=== PATIENT | male | born 1950 | race Caucasian/White ===

== ENCOUNTER 2020-03-20 11:07 | Inpatient (IN) ==
[2020-03-20] MEDS ORDERED: Furosemide 40 MG/4 ML VIAL IVP ONE (11:26)
[2020-03-20 11:44] LABS: Basophils % 0.2 %; Eosinophils % 0.1 %; Hematocrit 45.3 % (37.5-50.1); Hemoglobin 12.8 g/dL (12.9-16.9); Immature Granulocytes % 0.7 % (0-4); Lymphocytes # 0.5 K/mcL (0.6-4.6); Lymphocytes % 6.4 %; Mean Corpuscular HGB Conc 28.3 g/dL (31.6-35.5); Mean Corpuscular Hemoglobin 26.9 pg (28.0-33.3); Mean Corpuscular Volume 95.2 fL (83.0-100.0); Mean Platelet Volume 10.8 fL (9.4-12.4); Monocytes # 1.1 K/mcL (0.0-1.3); Neutrophils # 6.7 K/mcL (1.6-8.9); Platelet Count 213 K/mcL (140-400); Red Blood Count 4.76 M/mcL (4.19-5.50); Red Cell Distribution Width 14.9 % (11.5-14.5); Segmented Neutrophils % 79.6 %; White Blood Count 8.4 K/mcL (4.3-11.1)
[2020-03-20 11:57] LABS: INR 1.4; Prothrombin Time 15.5 Seconds (9.4-12.1)
[2020-03-20 12:14] LABS: Hypochromasia Present (Not Present); Platelet Estimate Normal (Normal)
[2020-03-20 13:07] LABS: Albumin 3.7 g/dL (3.5-5.7); Albumin/Globulin Ratio 1.2 (1.1-2.2); Bilirubin,Direct 0.2 mg/dL (0.0-0.2); Bilirubin,Indirect 0.5 mg/dL (0.0-1.0); Bilirubin,Total 0.7 mg/dL (0.3-1.0); Calcium 9.1 mg/dL (8.6-10.3); Potassium 5.3 mEq/L (3.5-5.1); Total Protein 6.7 g/dL (6.4-8.9); Troponin I 0.23 ng/mL (< 0.04)
[2020-03-20 13:11] LABS: Adenovirus Not Detected (Not Detect); Bordetella Pertussis Not Detected (Not Detect); Chlamydophila pneumoniae Not Detected (Not Detect); Coronavirus 229E Not Detected (Not Detect); Coronavirus HKU1 Not Detected (Not Detect); Coronavirus NL63 Not Detected (Not Detect); Coronavirus OC43 Not Detected (Not Detect); Human Metapneumovirus Not Detected (Not Detect); Human Rhinovirus/Enterovirus Not Detected (Not Detect); Influenza A Subtype 2009 H1 Not Detected (Not Detect); Influenza B Not Detected (Not Detect); Mycoplasma pneumoniae Not Detected (Not Detect); Parainfluenza Virus 1 Not Detected (Not Detect); Parainfluenza Virus 2 Not Detected (Not Detect); Parainfluenza Virus 3 Not Detected (Not Detect); Parainfluenza Virus 4 Not Detected (Not Detect); Respiratory Syncytial Virus Not Detected (Not Detect); SARS-CoV-2 Not Detected (Not Detect)
[2020-03-20] MEDS ORDERED: *HR* Heparin 5,000 UNIT/ML VIAL IVP ONE (13:18)
[2020-03-20] MEDS ORDERED: Aspirin 325 MG TABLET PO ONE (13:24)
[2020-03-20] MEDS ORDERED: Naloxone 0.4 MG/ML INJ IVP PRN (13:40)
[2020-03-20] MEDS ORDERED: Ondansetron 4 MG/2 ML VIAL IVP PRN (13:40)
[2020-03-20] MEDS ORDERED: Perflutren Lipid Microsphere 1.3 ML in 0.9 % Sodium Chloride 8.7 ML IVP PRN (13:42)
[2020-03-20 13:54] LABS: Hematocrit 43.7 % (37.5-50.1); Hemoglobin 12.7 g/dL (12.9-16.9); Mean Corpuscular HGB Conc 29.1 g/dL (31.6-35.5); Mean Corpuscular Hemoglobin 27.4 pg (28.0-33.3); Mean Corpuscular Volume 94.4 fL (83.0-100.0); Mean Platelet Volume 10.9 fL (9.4-12.4); Platelet Count 208 K/mcL (140-400); Red Blood Count 4.63 M/mcL (4.19-5.50); White Blood Count 8.7 K/mcL (4.3-11.1)
[2020-03-20] MEDS: Heparin 25,000UNIT/250ML 1/2NS 25,000 UNIT/250 ML IV.SOLN IVC SCH (13:54)
[2020-03-20 14:08] LABS: Heparin anti-factor XA UFH < 0.04 IU/mL (0.30-0.70); INR 1.3; Prothrombin Time 14.9 Seconds (9.4-12.1)
[2020-03-20 16:51] LABS: VBG HCO3 39 mEq/L (21-27); VBG PCO2 75 mmHg (41-51); VBG PH 7.33 pH Units (7.32-7.42); VBG PO2 160 mmHg (25-50)
[2020-03-20] MEDS: Furosemide 40 MG/4 ML VIAL IVP SCH (19:42)
[2020-03-20] MEDS: *HR* Heparin 5,000 UNIT/ML VIAL IVP PRN (20:51)
[2020-03-20 21:16] LABS: ABG Base Excess 13 mEq/L (-2 to 3); ABG HCO3 44 mEq/L (21-27); ABG Oxygen Saturation 91 % (95-98); ABG PCO2 93 mmHg (35-45); ABG PH 7.29 pH Units (7.32-7.45); ABG PO2 73 mmHg (85-104); ABG TCO2 47 mEq/L (20-26); Blood Gas Modality ST
[2020-03-20 22:07] LABS: Bacteria,Urine Few per hpf (None-Few); Bilirubin,Urine Negative (Negative); Blood,Urine Large (Negative); Clarity,Urine Turbid (Clear); Color,Urine Light-Orange (Yellow); Glucose,Urine (UA) Normal (Normal); Ketones,Urine Negative (Negative); Leukocyte Esterase,Urine Small (Negative); Mucus,Urine Few per lpf (None-Few); Nitrite,Urine Negative (Negative); PH,Urine 5.5 pH Units (5.0-8.0); Protein,Urine 50 mg/dL (Neg-Trace); RBC,Urine TNTC per hpf (0-3); Specific Gravity,Urine 1.013 (1.010-1.025); Urobilinogen,Urine Normal (Normal); WBC,Urine 15-30 per hpf (0-3)
[2020-03-21 00:39] LABS: ABG Base Excess 15 mEq/L (-2 to 3); ABG HCO3 45 mEq/L (21-27); ABG Oxygen Saturation 96 % (95-98); ABG PCO2 86 mmHg (35-45); ABG PH 7.32 pH Units (7.32-7.45); ABG PO2 93 mmHg (85-104); ABG TCO2 47 mEq/L (20-26); Blood Gas Modality AVAPS; Blood Gas VT 500 cc
[2020-03-21 03:26] LABS: Red Cell Distribution Width 14.9 % (11.5-14.5)
[2020-03-21 03:28] LABS: Basophils % 0.4 %; Eosinophils # 0.1 K/mcL (0.0-0.6); Hematocrit 39.6 % (37.5-50.1); Hemoglobin 11.3 g/dL (12.9-16.9); Immature Granulocytes % 0.7 % (0-4); Lymphocytes # 0.8 K/mcL (0.6-4.6); Lymphocytes % 11.5 %; Mean Corpuscular HGB Conc 28.5 g/dL (31.6-35.5); Mean Corpuscular Hemoglobin 26.8 pg (28.0-33.3); Mean Corpuscular Volume 94.1 fL (83.0-100.0); Mean Platelet Volume 10.9 fL (9.4-12.4); Monocytes # 1.2 K/mcL (0.0-1.3); Platelet Count 154 K/mcL (140-400); Red Blood Count 4.21 M/mcL (4.19-5.50); Segmented Neutrophils % 69.4 %; White Blood Count 7.1 K/mcL (4.3-11.1)
[2020-03-21 03:35] LABS: Neutrophils # 4.9 K/mcL (1.6-8.9)
[2020-03-21 03:50] LABS: Calcium 8.7 mg/dL (8.6-10.3); Magnesium 2.2 mg/dL (1.6-2.6); Potassium 4.4 mEq/L (3.5-5.1)
[2020-03-21 03:51] LABS: Platelet Estimate Normal (Normal)
[2020-03-21 04:28] LABS: ABG Base Excess 17 mEq/L (-2 to 3); ABG HCO3 44 mEq/L (21-27); ABG Oxygen Saturation 98 % (95-98); ABG PCO2 66 mmHg (35-45); ABG PH 7.44 pH Units (7.32-7.45); ABG PO2 115 mmHg (85-104); ABG TCO2 46 mEq/L (20-26); Blood Gas Modality AVAPS; Blood Gas VT 500 cc
[2020-03-21] MEDS: Aspirin 81 MG TAB.CHEW PO SCH (08:56)
[2020-03-21] MEDS: Cyanocobalamin (B-12) 1,000 MCG TABLET PO SCH (08:57)
[2020-03-21] MEDS: Pregabalin 50 MG CAPSULE PO SCH ×2 (08:59→20:40)
[2020-03-21] MEDS ORDERED: Fenofibrate 54 MG TABLET PO SCH (09:00)
[2020-03-21] MEDS: FLUoxetine HCl 10 MG CAPSULE PO SCH (09:00)
[2020-03-21] MEDS: Furosemide 40 MG/4 ML VIAL IVP SCH (09:00)
[2020-03-21] MEDS: Magnesium Oxide 400 MG TABLET PO SCH ×2 (09:00→20:41)
[2020-03-21] MEDS: *HR* Heparin 5,000 UNIT/ML VIAL IVP PRN (11:13)
[2020-03-21] MEDS: *HR* HYDROcodone/Acet 5/325 mg TABLET PO PRN (11:13)
[2020-03-21] MEDS: Heparin 25,000UNIT/250ML 1/2NS 25,000 UNIT/250 ML IV.SOLN IVC SCH (12:07)
[2020-03-21] MEDS: Metoprolol XL (24 HR) Succ 50 MG TAB.ER.24H PO SCH ×2 (14:08→20:41)
[2020-03-22 02:39] LABS: Eosinophils % 0.2 %; Immature Granulocytes % 0.8 % (0-4)
[2020-03-22 02:40] LABS: Basophils % 0.4 %; Hematocrit 45.1 % (37.5-50.1); Hemoglobin 12.6 g/dL (12.9-16.9); Lymphocytes # 0.9 K/mcL (0.6-4.6); Lymphocytes % 8.5 %; Mean Corpuscular HGB Conc 27.9 g/dL (31.6-35.5); Mean Corpuscular Hemoglobin 26.7 pg (28.0-33.3); Mean Corpuscular Volume 95.6 fL (83.0-100.0); Mean Platelet Volume 11.2 fL (9.4-12.4); Monocytes # 1.3 K/mcL (0.0-1.3); Monocytes % 12.9 %; Platelet Count 227 K/mcL (140-400); Red Blood Count 4.72 M/mcL (4.19-5.50); Red Cell Distribution Width 14.8 % (11.5-14.5); Segmented Neutrophils % 77.2 %; White Blood Count 10.3 K/mcL (4.3-11.1)
[2020-03-22 03:07] LABS: Calcium 9.1 mg/dL (8.6-10.3)
[2020-03-22 03:09] LABS: Macrocytosis Present (Not Present)
[2020-03-22 03:10] LABS: Anisocytosis 1+ (Not Present); Platelet Estimate Normal (Normal)
[2020-03-22] MEDS: Heparin 25,000UNIT/250ML 1/2NS 25,000 UNIT/250 ML IV.SOLN IVC SCH (06:26)
[2020-03-22] MEDS ORDERED: 0.9 % Sodium Chloride 250 ML IVC PRN ×2 (08:57→15:16)
[2020-03-22] MEDS ORDERED: *HR* Heparin 10,000 UNIT/10 ML VIAL IV PRN (08:57)
[2020-03-22] MEDS ORDERED: 0.9 % Sodium Chloride 1,000 ML PRIME SCH (09:00)
[2020-03-22] MEDS: *HR* HYDROcodone/Acet 5/325 mg TABLET PO PRN (09:14)
[2020-03-22] MEDS: Metoprolol XL (24 HR) Succ 50 MG TAB.ER.24H PO SCH ×2 (09:14→21:44)
[2020-03-22] MEDS: Pregabalin 50 MG CAPSULE PO SCH (09:15)
[2020-03-22] MEDS: SODIUM ZIRCONIUM CYCLOSILICATE 5 GM POWD.PACK PO SCH (09:15)
[2020-03-22] MEDS: Aspirin 81 MG TAB.CHEW PO SCH (09:15)
[2020-03-22] MEDS: Magnesium Oxide 400 MG TABLET PO SCH ×2 (09:15→21:44)
[2020-03-22] MEDS: FLUoxetine HCl 10 MG CAPSULE PO SCH (09:15)
[2020-03-22] MEDS: Cyanocobalamin (B-12) 1,000 MCG TABLET PO SCH (09:15)
[2020-03-22] MEDS: Fenofibrate 54 MG TABLET PO SCH (09:16)
[2020-03-22] MEDS ORDERED: Heparin 1,000 UNITS/500 mL 500 ML ONE (10:35)
[2020-03-22] MEDS ORDERED: *HR* Heparin 5,000 UNIT/ML VIAL ONE (10:36)
[2020-03-22 11:05] LABS: Hepatitis B Surface Antibody 19.71 mIU/mL
[2020-03-22 11:16] LABS: Hepatitis B Surface Antigen Nonreactive (Nonreactive)
[2020-03-22 12:09] LABS: Hematocrit 44.5 % (37.5-50.1); Hemoglobin 12.9 g/dL (12.9-16.9)
[2020-03-22 12:14] LABS: ABG Base Excess 9 mEq/L (-2 to 3); ABG HCO3 38 mEq/L (21-27); ABG Oxygen Saturation 99 % (95-98); ABG PCO2 73 mmHg (35-45); ABG PH 7.33 pH Units (7.32-7.45); ABG PO2 145 mmHg (85-104); ABG TCO2 41 mEq/L (20-26); Blood Gas Modality BiLevel
[2020-03-22 15:29] LABS: Calcium 8.7 mg/dL (8.6-10.3); Potassium 4.2 mEq/L (3.5-5.1)
[2020-03-22] MEDS: Pregabalin 75 MG CAPSULE PO SCH (21:43)
[2020-03-23] MEDS ORDERED: *HR* Heparin 10,000 UNIT/10 ML VIAL IV PRN (00:01)
[2020-03-23] MEDS: Heparin 25,000UNIT/250ML 1/2NS 25,000 UNIT/250 ML IV.SOLN IVC SCH ×3 (03:29→21:14)
[2020-03-23 04:06] LABS: Basophils % 0.2 %; Hemoglobin 11.8 g/dL (12.9-16.9)
[2020-03-23 04:08] LABS: Eosinophils % 0.4 %; Hematocrit 41.4 % (37.5-50.1); Immature Granulocytes % 1.1 % (0-4); Lymphocytes # 0.7 K/mcL (0.6-4.6); Mean Corpuscular HGB Conc 28.5 g/dL (31.6-35.5); Mean Corpuscular Hemoglobin 26.9 pg (28.0-33.3); Mean Corpuscular Volume 94.5 fL (83.0-100.0); Mean Platelet Volume 11.1 fL (9.4-12.4); Monocytes % 12.1 %; Neutrophils # 6.3 K/mcL (1.6-8.9); Platelet Count 182 K/mcL (140-400); Red Blood Count 4.38 M/mcL (4.19-5.50); Segmented Neutrophils % 77.2 %; White Blood Count 8.2 K/mcL (4.3-11.1)
[2020-03-23 04:24] LABS: Calcium 8.5 mg/dL (8.6-10.3); Potassium 4.7 mEq/L (3.5-5.1)
[2020-03-23 04:49] LABS: Hypochromasia Present (Not Present); Platelet Estimate Normal (Normal); Polychromasia 1+ (Not Present)
[2020-03-23] MEDS: Pregabalin 75 MG CAPSULE PO SCH ×2 (07:50→20:11)
[2020-03-23] MEDS: Aspirin 81 MG TAB.CHEW PO SCH (07:50)
[2020-03-23] MEDS: Fenofibrate 54 MG TABLET PO SCH (07:50)
[2020-03-23] MEDS: Metoprolol XL (24 HR) Succ 50 MG TAB.ER.24H PO SCH (07:50)
[2020-03-23] MEDS: FLUoxetine HCl 10 MG CAPSULE PO SCH (07:50)
[2020-03-23] MEDS: Cyanocobalamin (B-12) 1,000 MCG TABLET PO SCH (07:51)
[2020-03-23] MEDS: SODIUM ZIRCONIUM CYCLOSILICATE 5 GM POWD.PACK PO SCH (07:51)
[2020-03-23] MEDS: Magnesium Oxide 400 MG TABLET PO SCH ×2 (07:51→20:11)
[2020-03-23] MEDS ORDERED: Perflutren Lipid Microsphere 1.3 ML in 0.9 % Sodium Chloride 8.7 ML IVP PRN (14:34)
[2020-03-23] MEDS: Metoprolol XL (24 HR) Succ 25 MG TAB.ER.24H PO SCH (20:11)
[2020-03-24 01:22] LABS: Immature Granulocytes % 1.7 % (0-4); Mean Corpuscular HGB Conc 28.9 g/dL (31.6-35.5); Nucleated Red Blood Cells 0.2 /100 WBC (0); Red Cell Distribution Width 15.1 % (11.5-14.5)
[2020-03-24 01:23] LABS: Basophils % 0.4 %; Eosinophils # 0.1 K/mcL (0.0-0.6); Eosinophils % 0.8 %; Hematocrit 39.8 % (37.5-50.1); Hemoglobin 11.5 g/dL (12.9-16.9); Lymphocytes % 8.2 %; Mean Corpuscular Hemoglobin 27.1 pg (28.0-33.3); Mean Corpuscular Volume 93.6 fL (83.0-100.0); Mean Platelet Volume 11.2 fL (9.4-12.4); Monocytes # 1.3 K/mcL (0.0-1.3); Monocytes % 14.6 %; Platelet Count 149 K/mcL (140-400); Red Blood Count 4.25 M/mcL (4.19-5.50); Segmented Neutrophils % 74.3 %; White Blood Count 9.1 K/mcL (4.3-11.1)
[2020-03-24 01:27] LABS: Lymphocytes # 0.8 K/mcL (0.6-4.6); Neutrophils # 6.8 K/mcL (1.6-8.9)
[2020-03-24 01:47] LABS: Anisocytosis 1+ (Not Present); Calcium 8.5 mg/dL (8.6-10.3); Hypochromasia Present (Not Present); Platelet Estimate Normal (Normal); Potassium 4.5 mEq/L (3.5-5.1)
[2020-03-24] MEDS: *HR* Heparin 5,000 UNIT/ML VIAL IVP PRN (02:49)
[2020-03-24] MEDS ORDERED: 0.9 % Sodium Chloride 250 ML IVC PRN (08:26)
[2020-03-24] MEDS ORDERED: *HR* Heparin 10,000 UNIT/10 ML VIAL IV PRN ×2 (08:26)
[2020-03-24] MEDS: SODIUM ZIRCONIUM CYCLOSILICATE 5 GM POWD.PACK PO SCH (08:50)
[2020-03-24] MEDS: FLUoxetine HCl 10 MG CAPSULE PO SCH (08:51)
[2020-03-24] MEDS: Magnesium Oxide 400 MG TABLET PO SCH ×2 (08:51→20:28)
[2020-03-24] MEDS: Fenofibrate 54 MG TABLET PO SCH (08:51)
[2020-03-24] MEDS: Metoprolol XL (24 HR) Succ 25 MG TAB.ER.24H PO SCH ×2 (08:54→20:28)
[2020-03-24] MEDS: Cyanocobalamin (B-12) 1,000 MCG TABLET PO SCH (08:54)
[2020-03-24] MEDS: Aspirin 81 MG TAB.CHEW PO SCH (08:55)
[2020-03-24] MEDS: Pregabalin 75 MG CAPSULE PO SCH ×2 (08:56→20:28)
[2020-03-24 09:13] LABS: Magnesium 2.4 mg/dL (1.6-2.6); Phosphorous 4.9 mg/dL (2.7-4.5)
[2020-03-24] MEDS: *HR* HYDROcodone/Acet 5/325 mg TABLET PO PRN (17:26)
[2020-03-25 03:37] LABS: Basophils % 0.4 %; Eosinophils % 0.7 %; Mean Corpuscular HGB Conc 28.8 g/dL (31.6-35.5); Red Cell Distribution Width 15.1 % (11.5-14.5)
[2020-03-25 03:39] LABS: Eosinophils # 0.1 K/mcL (0.0-0.6); Hematocrit 39.9 % (37.5-50.1); Hemoglobin 11.5 g/dL (12.9-16.9); Immature Granulocytes % 2.4 % (0-4); Lymphocytes # 0.9 K/mcL (0.6-4.6); Lymphocytes % 9.1 %; Mean Corpuscular Hemoglobin 26.8 pg (28.0-33.3); Mean Platelet Volume 11.3 fL (9.4-12.4); Monocytes # 1.5 K/mcL (0.0-1.3); Monocytes % 14.6 %; Neutrophils # 7.3 K/mcL (1.6-8.9); Nucleated Red Blood Cells 0.5 /100 WBC (0); Platelet Count 147 K/mcL (140-400); Red Blood Count 4.29 M/mcL (4.19-5.50); Segmented Neutrophils % 72.8 %
[2020-03-25 03:54] LABS: Calcium 8.6 mg/dL (8.6-10.3); Potassium 4.3 mEq/L (3.5-5.1)
[2020-03-25 04:00] LABS: Platelet Estimate Normal (Normal)
[2020-03-25] MEDS: Heparin 25,000UNIT/250ML 1/2NS 25,000 UNIT/250 ML IV.SOLN IVC SCH ×2 (05:33→22:09)
[2020-03-25] MEDS: Pregabalin 75 MG CAPSULE PO SCH ×2 (08:57→20:18)
[2020-03-25] MEDS: Magnesium Oxide 400 MG TABLET PO SCH ×2 (08:57→20:17)
[2020-03-25] MEDS: Metoprolol XL (24 HR) Succ 25 MG TAB.ER.24H PO SCH ×2 (08:57→20:18)
[2020-03-25] MEDS: FLUoxetine HCl 10 MG CAPSULE PO SCH (08:57)
[2020-03-25] MEDS: Fenofibrate 54 MG TABLET PO SCH (08:57)
[2020-03-25] MEDS: Aspirin 81 MG TAB.CHEW PO SCH (08:57)
[2020-03-25] MEDS: SODIUM ZIRCONIUM CYCLOSILICATE 5 GM POWD.PACK PO SCH (09:07)
[2020-03-25] MEDS: Cyanocobalamin (B-12) 1,000 MCG TABLET PO SCH (09:07)
[2020-03-25] MEDS ORDERED: *HR* Metoprolol 5 MG/5 ML VIAL IVP STA (14:51)
[2020-03-25] MEDS ORDERED: Albumin 25% 25gram/100mL 25 GM/100 ML IV.SOLN IVPB ONE (17:07)
[2020-03-26 05:38] LABS: Basophils # 0.1 K/mcL (0.0-0.2); Basophils % 0.4 %; Eosinophils % 0.1 %; Hematocrit 44.4 % (37.5-50.1); Lymphocytes # 0.6 K/mcL (0.6-4.6); Lymphocytes % 4.4 %; Mean Corpuscular HGB Conc 29.3 g/dL (31.6-35.5); Mean Corpuscular Hemoglobin 27.3 pg (28.0-33.3); Mean Corpuscular Volume 93.3 fL (83.0-100.0); Mean Platelet Volume 11.8 fL (9.4-12.4); Monocytes # 2.1 K/mcL (0.0-1.3); Monocytes % 15.3 %; Neutrophils # 10.1 K/mcL (1.6-8.9); Nucleated Red Blood Cells 1.3 /100 WBC (0); Platelet Count 195 K/mcL (140-400); Red Blood Count 4.76 M/mcL (4.19-5.50); Red Cell Distribution Width 15.3 % (11.5-14.5); Segmented Neutrophils % 75.8 %; White Blood Count 13.4 K/mcL (4.3-11.1)
[2020-03-26 05:58] LABS: Calcium 9.2 mg/dL (8.6-10.3); Magnesium 2.9 mg/dL (1.6-2.6); Phosphorous 8.2 mg/dL (2.7-4.5); Potassium 5.8 mEq/L (3.5-5.1)
[2020-03-26 07:58] LABS: ABG Base Excess 4 mEq/L (-2 to 3); ABG HCO3 33 mEq/L (21-27); ABG Oxygen Saturation 95 % (95-98); ABG PCO2 68 mmHg (35-45); ABG PO2 89 mmHg (85-104); ABG TCO2 35 mEq/L (20-26)
[2020-03-26] MEDS ORDERED: *HR* Heparin 10,000 UNIT/10 ML VIAL IV PRN (08:09)
[2020-03-26] MEDS ORDERED: 0.9 % Sodium Chloride 250 ML IVC PRN (08:09)
[2020-03-26] MEDS: Fenofibrate 54 MG TABLET PO SCH (08:10)
[2020-03-26] MEDS: Metoprolol XL (24 HR) Succ 25 MG TAB.ER.24H PO SCH ×2 (08:10→20:42)
[2020-03-26] MEDS: Aspirin 81 MG TAB.CHEW PO SCH (08:10)
[2020-03-26] MEDS: FLUoxetine HCl 10 MG CAPSULE PO SCH (08:10)
[2020-03-26] MEDS: Pregabalin 75 MG CAPSULE PO SCH ×2 (08:10→20:42)
[2020-03-26] MEDS: Magnesium Oxide 400 MG TABLET PO SCH (08:11)
[2020-03-26] MEDS: SODIUM ZIRCONIUM CYCLOSILICATE 5 GM POWD.PACK PO SCH (08:11)
[2020-03-26] MEDS: Cyanocobalamin (B-12) 1,000 MCG TABLET PO SCH (08:11)
[2020-03-26] MEDS ORDERED: 0.9 % Sodium Chloride 1,000 ML PRIME SCH (08:15)
[2020-03-26] MEDS: *HR* Heparin 5,000 UNIT/ML VIAL IVP PRN ×2 (10:10→17:20)
[2020-03-26] MEDS: Heparin 25,000UNIT/250ML 1/2NS 25,000 UNIT/250 ML IV.SOLN IVC SCH ×2 (12:24→23:17)
[2020-03-26] MEDS ORDERED: 0.9 % Sodium Chloride 250 ML ONE (15:05)
[2020-03-26 15:27] LABS: ABG Base Excess 4 mEq/L (-2 to 3); ABG HCO3 33 mEq/L (21-27); ABG Oxygen Saturation 97 % (95-98); ABG PCO2 71 mmHg (35-45); ABG PH 7.27 pH Units (7.32-7.45); ABG PO2 108 mmHg (85-104); ABG TCO2 35 mEq/L (20-26)
[2020-03-26] MEDS: Norepinephrine 4 MG/254 ML IV.SOLN IVC SCH ×2 (15:27→21:30)
[2020-03-26] MEDS ORDERED: 0.9 % Sodium Chloride 500 ML IVC ONE (16:07)
[2020-03-26 16:19] LABS: Eosinophils % 0.1 %; Mean Corpuscular HGB Conc 28.7 g/dL (31.6-35.5)
[2020-03-26 16:20] LABS: Basophils # 0.1 K/mcL (0.0-0.2); Basophils % 0.4 %; Hematocrit 43.5 % (37.5-50.1); Hemoglobin 12.5 g/dL (12.9-16.9); Immature Granulocytes % 3.9 % (0-4); Lymphocytes # 0.6 K/mcL (0.6-4.6); Lymphocytes % 4.9 %; Mean Corpuscular Hemoglobin 26.8 pg (28.0-33.3); Mean Corpuscular Volume 93.3 fL (83.0-100.0); Mean Platelet Volume 11.9 fL (9.4-12.4); Monocytes # 1.4 K/mcL (0.0-1.3); Monocytes % 11.6 %; Neutrophils # 9.3 K/mcL (1.6-8.9); Nucleated Red Blood Cells 1.5 /100 WBC (0); Platelet Count 151 K/mcL (140-400); Red Blood Count 4.66 M/mcL (4.19-5.50); Red Cell Distribution Width 15.7 % (11.5-14.5); Segmented Neutrophils % 79.1 %; White Blood Count 11.7 K/mcL (4.3-11.1)
[2020-03-26 16:40] LABS: Hypochromasia Present (Not Present); Large Platelets Present (Not Present); Macrocytosis Present (Not Present); Platelet Estimate Normal (Normal); Polychromasia 1+ (Not Present); Tear Drop Cells 1+ (Not Present)
[2020-03-26 16:43] LABS: Calcium 8.7 mg/dL (8.6-10.3); Potassium 5.3 mEq/L (3.5-5.1)
[2020-03-26 18:02] LABS: Magnesium 2.5 mg/dL (1.6-2.6)
[2020-03-26] MEDS ORDERED: Amiodarone Premix 150 MG/100 ML BAG IVPB ONE ×2 (18:03→18:07)
[2020-03-26] MEDS ORDERED: Amiodarone Premix 360 MG/200 ML BAG IVC ONE (18:03)
[2020-03-27] MEDS: Amiodarone Premix 360 MG/200 ML BAG IVC SCH ×2 (01:00→13:45)
[2020-03-27] MEDS: Norepinephrine 8 MG in 0.9 % Sodium Chloride 250 ML IVC SCH ×2 (01:12→10:16)
[2020-03-27 04:13] LABS: Eosinophils % 0.1 %; Red Cell Distribution Width 15.7 % (11.5-14.5)
[2020-03-27 04:14] LABS: Basophils # 0.1 K/mcL (0.0-0.2); Basophils % 0.6 %; Hematocrit 46.5 % (37.5-50.1); Hemoglobin 13.6 g/dL (12.9-16.9); Immature Granulocytes % 4.4 % (0-4); Lymphocytes # 0.7 K/mcL (0.6-4.6); Lymphocytes % 4.3 %; Mean Corpuscular HGB Conc 29.2 g/dL (31.6-35.5); Mean Corpuscular Hemoglobin 27.1 pg (28.0-33.3); Mean Corpuscular Volume 92.8 fL (83.0-100.0); Monocytes % 12.2 %; Neutrophils # 12.7 K/mcL (1.6-8.9); Nucleated Red Blood Cells 3.9 /100 WBC (0); Platelet Count 172 K/mcL (140-400); Red Blood Count 5.01 M/mcL (4.19-5.50); Segmented Neutrophils % 78.4 %; White Blood Count 16.2 K/mcL (4.3-11.1)
[2020-03-27 04:32] LABS: Calcium 8.8 mg/dL (8.6-10.3); Potassium 5.7 mEq/L (3.5-5.1)
[2020-03-27] MEDS: Vasopressin 40 UNIT in D5% in Water 100 ML IVC SCH ×2 (05:54→21:06)
[2020-03-27 06:07] LABS: Large Platelets Present (Not Present); Platelet Estimate Normal (Normal)
[2020-03-27 06:08] LABS: Anisocytosis 1+ (Not Present)
[2020-03-27] MEDS: Aspirin 81 MG TAB.CHEW PO SCH (07:53)
[2020-03-27] MEDS: FLUoxetine HCl 10 MG CAPSULE PO SCH (07:53)
[2020-03-27] MEDS: Cyanocobalamin (B-12) 1,000 MCG TABLET PO SCH (07:54)
[2020-03-27] MEDS: Magnesium Oxide 400 MG TABLET PO SCH (07:54)
[2020-03-27] MEDS: SODIUM ZIRCONIUM CYCLOSILICATE 5 GM POWD.PACK PO SCH (09:01)
[2020-03-27] MEDS ORDERED: Perflutren Lipid Microsphere 1.3 ML in 0.9 % Sodium Chloride 8.7 ML IVP PRN (09:09)
[2020-03-27] MEDS ORDERED: Piperacillin/Tazobactam 3.375 GM in 0.9 % Sodium Chloride Mini Bag 100 ML IVP ONE ×2 (09:12→18:00)
[2020-03-27] MEDS: Metoprolol XL (24 HR) Succ 25 MG TAB.ER.24H PO SCH ×2 (09:16→20:55)
[2020-03-27] MEDS ORDERED: Vancomycin 1,500 MG/265 ML IV.SOLN IVPB ONE (09:25)
[2020-03-27] MEDS ORDERED: Vancomycin 1 EACH in 0.9 % Sodium Chloride 250 ML IVPB PRN (10:00)
[2020-03-27] MEDS: Furosemide 40 MG/4 ML VIAL IVP SCH ×2 (10:32→21:13)
[2020-03-27] MEDS: Heparin 25,000UNIT/250ML 1/2NS 25,000 UNIT/250 ML IV.SOLN IVC SCH ×2 (11:54→22:17)
[2020-03-27] MEDS: Pregabalin 75 MG CAPSULE PO SCH (21:05)
[2020-03-28] MEDS: Norepinephrine 16 MG in 0.9 % Sodium Chloride 500 ML IVC SCH ×2 (01:29→07:44)
[2020-03-28] MEDS: Amiodarone Premix 360 MG/200 ML BAG IVC SCH ×2 (01:53→13:34)
[2020-03-28 04:47] LABS: Basophils # 0.1 K/mcL (0.0-0.2); Basophils % 0.7 %; Eosinophils % 0.2 %; Hematocrit 41.5 % (37.5-50.1); Hemoglobin 12.3 g/dL (12.9-16.9); Immature Granulocytes % 4.8 % (0-4); Lymphocytes # 0.8 K/mcL (0.6-4.6); Lymphocytes % 5.8 %; Mean Corpuscular HGB Conc 29.6 g/dL (31.6-35.5); Mean Corpuscular Hemoglobin 26.6 pg (28.0-33.3); Mean Corpuscular Volume 89.6 fL (83.0-100.0); Mean Platelet Volume 12.6 fL (9.4-12.4); Monocytes # 1.6 K/mcL (0.0-1.3); Monocytes % 11.9 %; Neutrophils # 10.5 K/mcL (1.6-8.9); Nucleated Red Blood Cells 1.7 /100 WBC (0); Platelet Count 128 K/mcL (140-400); Red Blood Count 4.63 M/mcL (4.19-5.50); Red Cell Distribution Width 15.8 % (11.5-14.5); Segmented Neutrophils % 76.6 %; White Blood Count 13.7 K/mcL (4.3-11.1)
[2020-03-28 04:50] LABS: Calcium 7.8 mg/dL (8.6-10.3); Magnesium 2.8 mg/dL (1.6-2.6); Phosphorous 9.6 mg/dL (2.7-4.5); Potassium 5.4 mEq/L (3.5-5.1)
[2020-03-28] MEDS: Metoprolol XL (24 HR) Succ 25 MG TAB.ER.24H PO SCH ×2 (07:50→22:43)
[2020-03-28] MEDS: SODIUM ZIRCONIUM CYCLOSILICATE 5 GM POWD.PACK PO SCH (07:50)
[2020-03-28] MEDS: Magnesium Oxide 400 MG TABLET PO SCH (07:51)
[2020-03-28] MEDS: Cyanocobalamin (B-12) 1,000 MCG TABLET PO SCH (07:51)
[2020-03-28] MEDS: Aspirin 81 MG TAB.CHEW PO SCH (07:51)
[2020-03-28] MEDS: Furosemide 40 MG/4 ML VIAL IVP SCH ×2 (07:54→19:53)
[2020-03-28] MEDS: Vasopressin 40 UNIT in D5% in Water 100 ML IVC SCH (08:00)
[2020-03-28] MEDS: FLUoxetine HCl 10 MG CAPSULE PO SCH (08:10)
[2020-03-28] MEDS ORDERED: Heparin 1,000 UNITS/500 mL 500 ML ONE (10:31)
[2020-03-28] MEDS ORDERED: *HR* Heparin 5,000 UNIT/ML VIAL ONE (10:47)
[2020-03-28] MEDS: Heparin 25,000UNIT/250ML 1/2NS 25,000 UNIT/250 ML IV.SOLN IVC SCH (11:17)
[2020-03-28] MEDS ORDERED: Vancomycin 500 MG in 0.9 % Sodium Chloride Mini Bag 100 ML IVPB ONE (16:00)
[2020-03-28] MEDS: Pregabalin 75 MG CAPSULE PO SCH (19:56)
[2020-03-29] MEDS: Amiodarone Premix 360 MG/200 ML BAG IVC SCH ×2 (01:30→14:48)
[2020-03-29 02:13] LABS: Hematocrit 40.8 % (37.5-50.1); Mean Corpuscular HGB Conc 29.4 g/dL (31.6-35.5); Mean Corpuscular Hemoglobin 26.6 pg (28.0-33.3); Mean Corpuscular Volume 90.5 fL (83.0-100.0); Mean Platelet Volume 12.1 fL (9.4-12.4); Nucleated Red Blood Cells 3.2 /100 WBC (0); Platelet Count 133 K/mcL (140-400); Red Blood Count 4.51 M/mcL (4.19-5.50); Red Cell Distribution Width 15.8 % (11.5-14.5); White Blood Count 13.9 K/mcL (4.3-11.1)
[2020-03-29 02:38] LABS: Anisocytosis 1+ (Not Present); Hypochromasia Present (Not Present); Lymphocytes # 1.4 K/mcL (0.6-4.6); Monocytes # 0.6 K/mcL (0.0-1.3); Neutrophils # 11.7 K/mcL (1.6-8.9); Platelet Estimate Slight Decrease (Normal); Reactive Lymphocytes Present (Not Present)
[2020-03-29 04:22] LABS: Calcium 7.4 mg/dL (8.6-10.3); Phosphorous 10.7 mg/dL (2.7-4.5); Potassium 5.7 mEq/L (3.5-5.1)
[2020-03-29] MEDS ORDERED: *HR* Heparin 10,000 UNIT/10 ML VIAL IV PRN ×2 (07:44)
[2020-03-29] MEDS ORDERED: 0.9 % Sodium Chloride 250 ML IVC PRN (07:44)
[2020-03-29] MEDS ORDERED: Albumin 25% 25gram/100mL 25 GM/100 ML IV.SOLN IVPB PRN (07:44)
[2020-03-29] MEDS ORDERED: 0.9 % Sodium Chloride 1,000 ML PRIME SCH (07:45)
[2020-03-29] MEDS: FLUoxetine HCl 10 MG CAPSULE PO SCH (09:33)
[2020-03-29] MEDS: SODIUM ZIRCONIUM CYCLOSILICATE 5 GM POWD.PACK PO SCH ×2 (09:34→09:58)
[2020-03-29] MEDS: Magnesium Oxide 400 MG TABLET PO SCH (09:34)
[2020-03-29] MEDS: Aspirin 81 MG TAB.CHEW PO SCH (09:34)
[2020-03-29] MEDS: Cyanocobalamin (B-12) 1,000 MCG TABLET PO SCH (09:36)
[2020-03-29] MEDS: Metoprolol XL (24 HR) Succ 25 MG TAB.ER.24H PO SCH ×2 (09:37→22:22)
[2020-03-29] MEDS: Heparin 25,000UNIT/250ML 1/2NS 25,000 UNIT/250 ML IV.SOLN IVC SCH (09:40)
[2020-03-29] MEDS ORDERED: Albumin 25% 25gram/100mL 25 GM/100 ML IV.SOLN IVPB ONE (09:55)
[2020-03-29] MEDS: Furosemide 40 MG/4 ML VIAL IVP SCH (09:57)
[2020-03-29 10:19] LABS: Albumin 3.3 g/dL (3.5-5.7); Albumin/Globulin Ratio 1.1 (1.1-2.2); Bilirubin,Direct 0.8 mg/dL (0.0-0.2); Bilirubin,Indirect 0.4 mg/dL (0.0-1.0); Bilirubin,Total 1.2 mg/dL (0.3-1.0); Globulin 2.9 g/dL (2.4-3.5); Total Protein 6.2 g/dL (6.4-8.9)
[2020-03-29] MEDS ORDERED: *HR* Etomidate 20 MG/10 ML AMPUL IVP ONE (11:45)
[2020-03-29] MEDS ORDERED: *HR* Rocuronium Bromide 50 MG/5 ML VIAL IVP ONE (11:45)
[2020-03-29] MEDS ORDERED: *HR* Midazolam HCl 5 MG/5 ML VIAL IVP ONE (11:45)
[2020-03-29] MEDS: Calcium Acetate 667 MG CAPSULE PO SCH ×2 (12:18→18:24)
[2020-03-29] MEDS: Norepinephrine 16 MG in 0.9 % Sodium Chloride 500 ML IVC SCH ×2 (12:32→20:04)
[2020-03-29 14:41] LABS: ABG Base Excess -1 mEq/L (-2 to 3); ABG HCO3 28 mEq/L (21-27); ABG Oxygen Saturation 94 % (95-98); ABG PCO2 73 mmHg (35-45); ABG PO2 91 mmHg (85-104); ABG TCO2 31 mEq/L (20-26)
[2020-03-29] MEDS ORDERED: *HR* Heparin 5,000 UNIT/ML VIAL IVP PRN (14:58)
[2020-03-29 16:10] LABS: ABG Base Excess -1 mEq/L (-2 to 3); ABG HCO3 30 mEq/L (21-27); ABG Oxygen Saturation 98 % (95-98); ABG PCO2 85 mmHg (35-45); ABG PH 7.15 pH Units (7.32-7.45); ABG PO2 131 mmHg (85-104); ABG TCO2 32 mEq/L (20-26); Blood Gas Modality AVAPS; Blood Gas VT 500 cc
[2020-03-29] MEDS: FentaNYL (PF) 1,000 MCG/100 ML IV.SOLN IVC SCH (19:30)
[2020-03-29] MEDS: Midazolam HCl 50 MG/100 ML IV.SOLN IVC SCH (20:00)
[2020-03-29] MEDS ORDERED: Cefepime HCl 1,000 MG in Water for inj. (sterile) 10 ML IVP SCH (21:00)
[2020-03-29] MEDS: Cefepime HCl 2,000 MG in Water for inj. (sterile) 20 ML IVP SCH (21:55)
[2020-03-29] MEDS: *HR* Amiodarone 200 MG TABLET PO SCH (21:58)
[2020-03-29] MEDS: Pregabalin 75 MG CAPSULE PO SCH (21:58)
[2020-03-29] MEDS: 0.9 % Sodium Chloride 1,000 ML PRIME SCH ×4 (21:59→22:22)
[2020-03-29] MEDS: PrismaSATE BGK 4/2.5 5,000 ML CRRT SCH ×3 (22:00→22:21)
[2020-03-29 22:54] LABS: ABG Base Excess 0 mEq/L (-2 to 3); ABG HCO3 22 mEq/L (21-27); ABG Oxygen Saturation 100 % (95-98); ABG PCO2 30 mmHg (35-45); ABG PH 7.48 pH Units (7.32-7.45); ABG PO2 274 mmHg (85-104); ABG TCO2 23 mEq/L (20-26); Blood Gas Modality ASSIST CONTROL; Blood Gas VT 540 cc
[2020-03-29 22:58] LABS: VBG Ionized Calcium 0.85 mmol/L (1.15-1.35)
[2020-03-29] MEDS ORDERED: Potassium Chloride 40 MEQ/200 ML BAG IVPB PRN (23:02)
[2020-03-29] MEDS ORDERED: Artificial Tears SOLN 15 ML BOTTLE BOTH EYES PRN (23:04)
[2020-03-29 23:13] LABS: Calcium 7.5 mg/dL (8.6-10.3); Magnesium 2.9 mg/dL (1.6-2.6); Phosphorous 6.4 mg/dL (2.7-4.5); Potassium 4.6 mEq/L (3.5-5.1)
[2020-03-29] MEDS: Calcium Gluconate 1gm/50mL 1 GM/50 ML BAG IVPB SCH ×2 (23:18→23:54)
[2020-03-29] MEDS: Pantoprazole 40 MG VIAL IVP SCH (23:18)
[2020-03-30] MEDS: Chlorhexidine Rinse 15 ML MOUTHWASH MM SCH ×3 (02:10→19:51)
[2020-03-30] MEDS: 0.9 % Sodium Chloride 1,000 ML PRIME SCH ×9 (02:10→23:17)
[2020-03-30] MEDS: *HR* Amiodarone 200 MG TABLET PO SCH ×3 (02:21→19:52)
[2020-03-30] MEDS: PrismaSATE BGK 4/2.5 5,000 ML CRRT SCH ×9 (03:00→22:30)
[2020-03-30 03:50] LABS: ABG Base Excess 0 mEq/L (-2 to 3); ABG HCO3 24 mEq/L (21-27); ABG Oxygen Saturation 99 % (95-98); ABG PCO2 34 mmHg (35-45); ABG PH 7.45 pH Units (7.32-7.45); ABG PO2 117 mmHg (85-104); ABG TCO2 25 mEq/L (20-26); Blood Gas Modality ASSIST CONTROL; Blood Gas VT 540 cc
[2020-03-30 04:49] LABS: VBG Ionized Calcium 0.93 mmol/L (1.15-1.35)
[2020-03-30 04:53] LABS: INR 1.7; Prothrombin Time 19.7 Seconds (9.4-12.1)
[2020-03-30] MEDS: FentaNYL (PF) 1,000 MCG/100 ML IV.SOLN IVC SCH ×2 (05:00→14:14)
[2020-03-30 05:05] LABS: Albumin 3.1 g/dL (3.5-5.7); Albumin/Globulin Ratio 1.3 (1.1-2.2); Bilirubin,Total 1.4 mg/dL (0.3-1.0); Calcium 7.7 mg/dL (8.6-10.3); Globulin 2.4 g/dL (2.4-3.5); Magnesium 2.9 mg/dL (1.6-2.6); Phosphorous 5.6 mg/dL (2.7-4.5); Potassium 4.4 mEq/L (3.5-5.1); Total Protein 5.5 g/dL (6.4-8.9)
[2020-03-30 05:26] LABS: Basophils % 0.2 %; Eosinophils # 0.1 K/mcL (0.0-0.6); Hemoglobin 10.2 g/dL (12.9-16.9); Immature Granulocytes % 4.3 % (0-4); Lymphocytes # 0.6 K/mcL (0.6-4.6); Lymphocytes % 6.3 %; Mean Corpuscular HGB Conc 31.9 g/dL (31.6-35.5); Mean Corpuscular Volume 84.7 fL (83.0-100.0); Mean Platelet Volume 11.7 fL (9.4-12.4); Monocytes # 0.9 K/mcL (0.0-1.3); Monocytes % 9.8 %; Neutrophils # 7.3 K/mcL (1.6-8.9); Platelet Count 112 K/mcL (140-400); Red Blood Count 3.78 M/mcL (4.19-5.50); Red Cell Distribution Width 15.6 % (11.5-14.5); Segmented Neutrophils % 78.4 %; White Blood Count 9.3 K/mcL (4.3-11.1)
[2020-03-30] MEDS: Calcium Gluconate 1gm/50mL 1 GM/50 ML BAG IVPB SCH ×2 (05:49→06:28)
[2020-03-30] MEDS: Pantoprazole 40 MG VIAL IVP SCH (05:51)
[2020-03-30] MEDS: Artificial Tears SOLN 15 ML BOTTLE BOTH EYES SCH ×6 (06:29→20:49)
[2020-03-30] MEDS: FLUoxetine HCl 10 MG CAPSULE PO SCH (06:32)
[2020-03-30] MEDS: Vasopressin 40 UNIT in D5% in Water 100 ML IVC SCH (07:15)
[2020-03-30] MEDS: SODIUM ZIRCONIUM CYCLOSILICATE 5 GM POWD.PACK PO SCH (07:16)
[2020-03-30] MEDS: Metoprolol XL (24 HR) Succ 25 MG TAB.ER.24H PO SCH (07:17)
[2020-03-30] MEDS: Aspirin 81 MG TAB.CHEW PO SCH (07:35)
[2020-03-30] MEDS: Calcium Acetate 667 MG CAPSULE PO SCH ×4 (07:35→16:12)
[2020-03-30] MEDS: Magnesium Oxide 400 MG TABLET PO SCH (07:35)
[2020-03-30] MEDS: Cefepime HCl 2,000 MG in Water for inj. (sterile) 20 ML IVP SCH ×2 (07:35→19:51)
[2020-03-30] MEDS: Cyanocobalamin (B-12) 1,000 MCG TABLET PO SCH (07:36)
[2020-03-30] MEDS: Heparin 25,000UNIT/250ML 1/2NS 25,000 UNIT/250 ML IV.SOLN IVC SCH ×2 (08:35→20:00)
[2020-03-30 09:45] LABS: VBG Ionized Calcium 1.01 mmol/L (1.15-1.35)
[2020-03-30 10:08] LABS: Calcium 7.8 mg/dL (8.6-10.3); Magnesium 2.8 mg/dL (1.6-2.6); Phosphorous 4.5 mg/dL (2.7-4.5); Potassium 4.2 mEq/L (3.5-5.1)
[2020-03-30] MEDS: Calcium Gluconate 1gm/50mL 1 GM/50 ML BAG IVPB PRN ×3 (11:02→22:13)
[2020-03-30] MEDS: Midazolam HCl 50 MG/100 ML IV.SOLN IVC SCH (14:15)
[2020-03-30] MEDS: Albumin 25% 25gram/100mL 25 GM/100 ML IV.SOLN IVC SCH ×2 (14:32→15:04)
[2020-03-30 15:47] LABS: VBG Ionized Calcium 1.03 mmol/L (1.15-1.35)
[2020-03-30 21:50] LABS: VBG Ionized Calcium 1.08 mmol/L (1.15-1.35)
[2020-03-30 22:08] LABS: Magnesium 2.8 mg/dL (1.6-2.6); Potassium 4.3 mEq/L (3.5-5.1)
[2020-03-31 00:13] VITALS: BP 98/58
[2020-03-31] MEDS: Artificial Tears SOLN 15 ML BOTTLE BOTH EYES SCH (00:18)
[2020-03-31] MEDS: FentaNYL (PF) 1,000 MCG/100 ML IV.SOLN IVC SCH (00:28)
[2020-03-31] MEDS ORDERED: *HR* Heparin 5,000 UNIT/ML VIAL ONE (00:59)
[2020-03-31] MEDS: *HR* Heparin 5,000 UNIT/ML VIAL IVP PRN ×2 (01:18→01:22)
== END 2020-03-31 01:15 | disposition short-term general hospital (02) | DRG 208 ==
LOC: EMEROOARM 11:07 → 2ANU 11:07 → SUATTDRO 13:34 → 2ANU 15:05 → ICNU 03-26 15:43 → 2NNU 03-28 03:06 → ICNU 03-29 19:53
PROVIDERS: ADMIT Internal Medicine; ATTEND Family Medicine
PROC: IRPERMA (2020-03-28 12:00)